=== PATIENT | female | born 1975 | race Caucasian/White ===

== ENCOUNTER 2016-11-17 08:16 | Emergency (ER) | payer BC, OTHER ==
[~2016-11-17] VITALS: Ht 172.7 cm; Wt 101.8 kg
[2016-11-17 08:24] VITALS: TEMP 36.9; Ht 172.7 cm; Wt 101.8 kg
[2016-11-17] MEDS ORDERED: METF-384 PO (09:26)
[2016-11-17] MEDS ORDERED: BUPR100T8 PO (09:27)
[2016-11-17] MEDS ORDERED: CITA10TA4 PO (09:28)
[2016-11-17] MEDS ORDERED: GLIP5TAB3 PO (09:29)
[2016-11-17] MEDS ORDERED: GABA-112 PO (09:30)
[2016-11-17] MEDS ORDERED: LOSA1TAB PO (09:31)
[2016-11-17] MEDS ORDERED: IBUP-1050 PO (09:32)
[2016-11-17] MEDS ORDERED: BUPR-79 PO (10:09)
[2016-11-17] MEDS ORDERED: CITA40TA4 PO (10:11)
[2016-11-17] MEDS ORDERED: GABA-113 PO (10:12)
[2016-11-17] MEDS ORDERED: GLIP10TA9 PO (10:15)
[2016-11-17] MEDS ORDERED: ATV/1 PO (10:19)
[2016-11-17 10:23] VITALS: BP 146/91; PULSE 84; O2SAT 98
--- NOTE | 2016-11-19 14:09 | Pharmacy Progress Note ---
ED Pharmacist Culture FollowUp Date of Service: Nov 19, 2016. Rare coag negative Staph isolated from wound culture. Spoke w Juan Nixon - does not believe this represents infection and is likely a contaminant. No intervention needed at this time.
--- NOTE | 2016-11-19 16:17 | EMERGENCY ROOM VISIT NOTE ---
ED Visit Note First contact with patient: 09:10 Chief Complaint: Right foot pain. History of Present Illness: Ms. Carcamo is a 41-year-old white female who ambulates into the ED complaining of plantar right foot pain. Historically patient reports she has right Charcot Foot and is scheduled for surgery within the next month. She was placed in a walking boot by her specialist and reports that the dog was irritating the anterior aspect of the lower leg so she placed a washcloth between her leg. The washcloth fell down and slipped under her foot. She is not exactly sure of the timing but feels like she has been walking on the washcloth for a couple of days. Earlier today she removed her solis and found the washcloth under her foot as well as a large blister. Associated with her blister she reports she is having foot pain. She describes it as a throbbing and mild burning sensation. She rates her discomfort 7/10. The pain is nonradiating. The pain worsens with ambulation and palpation of the blister. She has not identified any alleviating factors related to the pain. She has not taken any medications for pain prior to arrival at the hospital. She denies any associated symptoms including fevers, chills, redness around her blister, worsening neuropathy, other foot pain. Review of Systems: As noted above in history of present illness. Past Medical History: As previously noted, diabetes, hypertension, depression, anxiety, status post appendectomy. Current Medications: Medications Dose Route/Sig Max Daily Dose Days Date Category Ativan (Lorazepam) 1 Mg Tab 1 Mg PO DAILY PRN 11/17/16 Reported Glucotrol (Glipizide) 10 Mg Tab 10 Mg PO DAILY 11/17/16 Reported Neurontin (Gabapentin) 300 Mg Cap 300 Mg PO HS 11/17/16 Reported Citalopram Hydrobromide (Citalopram) 40 Mg Tab 1 Tab PO DAILY 90 11/17/16 Reported Wellbutrin Sr (Bupropion HCl) 150 Mg Ertab 150 Mg PO BID 11/17/16 Reported Advil (Ibuprofen) 200 Mg Tab 800 Mg PO DAILY 11/17/16 Reported Cozaar (Losartan Potassium) 25 Mg Tab Unknown Dose PO DAILY 11/17/16 Reported Glucophage (Metformin Hcl) 1,000 Mg Tab 1,000 Mg PO BID 11/17/16 Reported Allergies to Medications: Patient denies. Social History: Patient is currently employed; she feels safe in her home environment; she denies tobacco and alcohol use. Physical Examination: Vital Signs: Date Time Temp Pulse Resp B/P Pulse Ox O2 Delivery O2 Flow Rate FiO2 11/17/16 10:23 84 18 146/91 98 11/17/16 10:20 84 18 146/91 98 Room Air 11/17/16 08:24 36.9 91 18 137/85 96 Room Air GENERAL: 41-year-old female in mild distress due to pain, nontoxic-appearing, afebrile and hemodynamically stable. SKIN: Warm, dry and pink. Right Foot: Over the plantar surface of the foot the patient has a large blood blister measuring approximately 5 x 6 cm. There is no erythema or lymphangitis surrounding the blister. RIGHT FOOT: Patient does have exudates traditional deformity consistent with Charcot foot with midfoot "rocker". No acute bony seizure noted. She has diffuse pain throughout the foot which is consistent prior to the development of her blister. Throughout the foot the skin was warm and pink and capillary refill is brisk. ED Course: Patient is assessed as noted above. Puncture and Drainage: Verbal consent was obtained after the risks and benefits were explained. The skin was prepped with betadine and a sterile field set. The distal border of the blister was punctured with a single puncture wound with a sharp needle. Approximately 6 mL of blood tinged material was drained from the blister and more was expressed. Aerobic cultures were obtained and are currently pending. The puncture wound was covered with an subdural antibiotic ointment dressing No complications and the patient tolerated the procedure well. Patient was educated about her condition and instructed on her treatment plan; she verbalized understanding and agreement with this plan. CLINICAL IMPRESSION: Blood blister to the right foot. DISPOSITION: Patient discharged to home in stable condition; prior to departure patient was reassessed and subjectively reported she was feeling better. PLAN: Patient was encouraged to continue her current medications as prescribed. Patient was encouraged to use 650 mg of acetaminophen as needed for pain. Patient was educated on signs of infection. Patient was encouraged to follow-up with her PCP or foot surgeon for signs of infection and culture results. Patient was encouraged return to the ED for any signs of infection, uncontrolled pain or any new/concerning symptoms.
== END 2016-11-17 10:23 | disposition home or self-care (01) ==
LOC: C.EDB 08:18
DX: S90.821A Blister (nonthermal), right foot, initial encounter (principal); X58.XXXA Exposure to other specified factors, initial encounter